=== PATIENT | male | born 1955 | race Caucasian/White ===

== ENCOUNTER 2019-09-17 07:14 | Outpatient (CLI) | payer BC, SELFPAY | END 2019-09-17 07:15 | disposition home or self-care (01) | LOC: ANHCSM 07:15 | PROVIDERS: PCP Family Medicine; Visit Provider Family Medicine | DX: G47.33 Obstructive sleep apnea (adult) (pediatric) (principal) | CPT/HCPCS: 95811 ==

== ENCOUNTER 2019-11-02 09:50 | Outpatient (CLI) | payer BC, SELFPAY ==
--- NOTE | ~2019-11-02 | CT_ITS ---
EXAMINATION: CT soft tissue neck w con DATE: 11/02/2019 10:39 INDICATION: Lymphadenitis. TECHNIQUE: Computed tomography (CT) of the neck was performed with 75 mL Omnipaque-350 intravenous co ntrast. Automated exposure control and iterative reconstruction technique were employed. The dose-phani gth product was 476.60 mGy-cm. COMPARISON: None FINDINGS: There is a 2.0 x 1.3 cm mass in superficial right parotid gland. A skin marker overlies thi s area. There are no pathologically enlarged lymph nodes. The paranasal sinuses are clear. The mastoi d air cells are normal. There is moderate cervical spondylosis. IMPRESSION: 1. 2.0 cm mass in superficial right parotid gland. The differential diagnosis includes benign mixed t umor, Warthin tumor, and less likely primary malignancy or francy metastatic disease. Ultrasound-guide d fine-needle aspiration is recommended. Reviewed, dictated and finalized at location A. PROCESSING SHIFT SUPERVISOR IMPRESSION: 1. 2.0 cm mass in superficial right parotid gland. The differential diagnosis i ncludes benign mixed tumor, Warthin tumor, and less likely primary malignancy o r francy metastatic disease. Ultrasound-guided fine-needle aspiration is recomme nded.
[2019-11-02 10:23] LABS: Blood Urea Nitrogen 18 mg/dL (8-26); Estimated Glomerular Filt Rate 56
== END 2019-11-02 09:51 | disposition home or self-care (01) ==
LOC: ANHIMG 09:57
PROVIDERS: PCP Family Medicine; Visit Provider Otolaryngology
DX: I88.9 Nonspecific lymphadenitis, unspecified (principal)
CPT/HCPCS: 70491; Q9967

== ENCOUNTER 2019-11-15 09:16 | Outpatient (CLI) | payer BC, SELFPAY ==
--- NOTE | ~2019-11-15 | US_ITS ---
EXAMINATION: US soft tissue head and neck DATE: 11/15/2019 10:22 INDICATION: Right parotid gland mass. TECHNIQUE: Multiple grayscale and Doppler ultrasound images of the right parotid gland were obtained. COMPARISON: Neck CT 11/02/2019 FINDINGS: The right parotid gland is normal. No abnormal mass. IMPRESSION: 1. Interval resolution of the right parotid mass. No biopsy was performed. Reviewed, dictated and finalized at location A. NESS INFORMATION CONSULTANT
[2019-11-15 11:34] LABS: Hematocrit 40.3 % (42.0-52.0); Hemoglobin 13.5 g/dL (14.0-18.0); Mean Corpuscular HGB Conc 33.5 g/dl (32-36); Mean Corpuscular Hemoglobin 29.2 pg (26-34); Mean Platelet Volume 11.3 fl (7.4-10.4); Platelet Count Result 207 k/mm3 (150-375); Red Blood Count 4.63 M/mm3 (4.6-6.20); Red Cell Distribution Width 13.2 % (11.5-14.5); White Blood Count 7.4 K/mm3 (4.5-10.0)
[2019-11-15 11:53] LABS: Prothrombin Time 13.3 Seconds (11.1-14.7)
== END 2019-11-15 09:17 | disposition home or self-care (01) ==
PROVIDERS: PCP Family Medicine; Visit Provider Otolaryngology
DX: D37.030 Neoplasm of uncertain behavior of the parotid salivary glands (principal)
CPT/HCPCS: 36415; 76536; 85027; 85610

== ENCOUNTER → 2021-11-25 12:15 | Outpatient (CLI) | payer BC, SELFPAY ==
--- NOTE | ~2021-11-25 | XR_ITS ---
XR hip RT min 2V 11/25/2021 12:35 Indication: Right hip pain Procedure: 2 views right hip Comparison: 01/07/2012 Findings: There is stable mild osteoarthritis of the right hip. No fracture, subluxation or dislocati on is identified. No significant soft tissue abnormality. Impression: 1: Mild osteoarthritis of the right hip. Reviewed, dictated and finalized at location A. SHAPER TOP Impression: 1: Mild osteoarthritis of the right hip.
--- NOTE | ~2021-11-25 | XR_ITS ---
XR lumbar spine 2-3V 11/25/2021 12:35 Indication: Low back pain Procedure: 3 views lumbar spine Comparison: 10/17/2018 Findings: There is mild disc narrowing at L5-S1. There is moderate lower lumbar facet hypertrophy wit h grade 1 spondylolisthesis at L4-5. No fracture, subluxation or dislocation. Mild levocurvature of t he lumbar spine. There are bilateral renal stones. Impression: 1: Mild lumbar spondylosis with levoscoliosis. 2: Bilateral nephrolithiasis. Reviewed, dictated and finalized at location A. ER CONTROL TECHNICIAN Impression: 1: Mild lumbar spondylosis with levoscoliosis. 2: Bilateral nephrolithiasis.
== END ==
PROVIDERS: Visit Provider Physician Assistant
DX: M25.551 Pain in right hip (principal); M47.816 Spondylosis without myelopathy or radiculopathy, lumbar region; M41.86 Other forms of scoliosis, lumbar region; N20.0 Calculus of kidney; M16.11 Unilateral primary osteoarthritis, right hip
CPT/HCPCS: 72100; 73502

== ENCOUNTER → 2021-12-14 10:40 | Outpatient (CLI) | payer BC, SELFPAY ==
--- NOTE | ~2021-12-14 | CT_ITS ---
EXAMINATION: CT abdomen pelvis wo con DATE: 12/14/2021 11:02 INDICATION: Bilateral kidney stones TECHNIQUE: Computed tomography (CT) of the abdomen and pelvis was performed without intravenous contr ast. The dose-length product (DLP) was 1075.33 mGy-cm. Automated exposure control and iterative recon struction technique were employed. COMPARISON: 05/24/2018 FINDINGS: Minimal dependent atelectasis is present in the lung bases. The heart size is normal. The l iver, spleen, pancreas, gallbladder, and adrenal glands are normal. There is an 11 mm hemorrhagic cys t of the left kidney. Simple cysts of the kidneys measure up to 1.5 cm on the left. There are three n onobstructing stones of the right kidney which measure up to 4 mm. There are four nonobstructing ston es of the left kidney which measure up to 6 mm. Stones previously seen in the right kidney lower pole are no longer evident, consistent with interval treatment or passage. No stones are identified in th e ureters or bladder. There is no hydronephrosis or hydroureter. The appendix is normal. There is mil d lumbar spondylosis. IMPRESSION: 1. Nonobstructing bilateral nephrolithiasis. Reviewed, dictated and finalized at location B.
== END ==
PROVIDERS: PCP Family Medicine; Visit Provider Urology
DX: N20.0 Calculus of kidney (principal)
CPT/HCPCS: 74176

== ENCOUNTER → 2022-06-11 15:26 | Outpatient (CLI) | payer BC, SELFPAY ==
--- NOTE | ~2022-06-11 | XR_ITS ---
XR abdomen/kub 1V DATE: 06/11/2022 15:45 INDICATION: Bilateral kidney stones TECHNIQUE: AP projection, 2 views COMPARISON: 12/14/[address] abdomen pelvis 09/05/2018 KUB FINDINGS: Several small renal calcified calculi are noted overlying each kidney. The psoas shadows are intact. No visceromegaly is evident. There is no evidence of bowel obstruction. IMPRESSION: Mild bilateral nephrolithiasis Reviewed, dictated and finalized at Location A. Reviewed, dictated and finalized at location A.
== END ==
PROVIDERS: PCP Family Medicine; Visit Provider Urology
DX: N20.0 Calculus of kidney (principal)
CPT/HCPCS: 74018

== ENCOUNTER 2022-07-26 01:10 | Day surgery (SDC) | payer MEDICARE, SELFPAY ==
[2022-07-14 14:59] VITALS: BMI 33.8
[2022-07-26 08:09] VITALS: BP 129/82; PULSE 69; RESP 18; TEMP 36.2; O2SAT 99; BMI 34.1
[2022-07-26] MEDS: LACTATED RINGERS 1,000 ML 150 ML IV CONT (08:30)
--- NOTE | 2022-07-26 08:32 | P.PNAN_ITS ---
Anes - Initial Pre Proc Eval Procedure: Operation Date: 07/26/22 09:00 Proposed Procedures p Screening Colonoscopy - Torito Reed MD Date/Time: 07/26/22 08:32 Surgeon: Torito Reed MD Pre Op Diagnosis: hx colon polyps Patient Data Age: 67 Gender: M Height: 1.78 m Weight: 108 kg Last Vital Signs Temp 36.2 C L 07/26/22 08:09 Pulse 69 07/26/22 08:09 Resp 18 07/26/22 08:09 BP 129/82 07/26/22 08:09 Pulse Ox 99 07/26/22 08:09 O2 Del Method Room Air 07/26/22 08:09 Allergies Allergy/AdvReac Type Severity Reaction Status Date / Time No Known Allergies Allergy Verified 07/26/22 08:08 Home Medications Medication Instructions Recorded Confirmed Type amlodipine 10 mg tablet 10 mg PO DAILY 07/14/22 07/14/22 History aspirin 81 mg tablet 81 mg PO DAILY 07/14/22 07/14/22 History atenolol 50 mg tablet 50 mg PO DAILY 07/14/22 07/14/22 History atorvastatin 40 mg tablet 40 mg PO DAILY 07/14/22 07/14/22 History fenofibrate nanocrystallized 145 145 mg PO DAILY 07/14/22 07/14/22 History mg tablet losartan 100 mg tablet 100 mg PO DAILY 07/14/22 07/14/22 History multivitamin with minerals-folic 1 tablet PO DAILY 07/14/22 07/14/22 History acid 0.4 mg tablet zolmitriptan 5 mg tablet (Zomig) 5 mg PO ONCE PRN Migraine Headache 07/14/22 07/14/22 History Patient hx anesthesia problems: none Family hx anesthesia problems: none Results Review: All pre-operative results and documents have been reviewed as part of the pre- operative evaluation. [facility] Past Medical History Medical History (Updated 07/26/22 @ 08:35 by Emanuel Del Castillo MD) Obesity MICHAEL (obstructive sleep apnea) Surgical History Surgical History H/O colonoscopy Social History Social History Smoking packs per day: 1 Smoking cigarettes per day: 20.0 Years smoked: 30 Smoking pack-years: 30.00 Smoking status: Former smoker Tobacco type: cigarettes Alcohol intake: current Alcohol use details: occasional Substance use type: does not use Living arrangements: alone Spiritual care concerns: No Anes - Eval Final PreProcedure Day of Procedure 07/26/22 08:32 Patient weight: obese Heart: regular rate and rhythm Lungs: clear to auscultation Airway: Mallampati scale class II Neurological: alert and oriented Last oral intake: >/= 8 hours ASA classification: III Anesthetic plan: proceed Anesthesia type and monitoring: general GIVS and standard monitoring Results Review: All pre-operative results and documents have been reviewed as part of the pre- operative evaluation. Informed Consent: The patient's anesthetic plan and its attendant risks and benefits were discussed with the patient/family/POA. Questions were solicited and answers provided to the satisfaction of the patient/family/POA.
--- NOTE | 2022-07-26 08:45 | PM.HPGS ---
History of Present Illness History of Present Illness Consent: Risks, benefits, and alternatives have been discussed and questions answered. Patient agrees to proceed with procedure. Chief complaint: hx colon polyps Narrative: Benjamín Muniz is a 67 year old male Presents for screening colonoscopy. Patient's current weight appetite and bowel movements are normal. Patient denies abdominal pain. He has had no bleeding. Family history is noncontributory. Previous colonoscopy 2017 revealed adenomatous colon polyp removed from the colon. Patient presents today for surveillance screening colonoscopy. Review of Systems Review of Systems: Review of systems noncontributory. [facility] Past Medical History Medical History (Updated 07/26/22 @ 08:46 by Torito Reed MD) Obesity MICHAEL (obstructive sleep apnea) Surgical History Surgical History H/O colonoscopy Social History Social History Smoking packs per day: 1 Smoking cigarettes per day: 20.0 Years smoked: 30 Smoking pack-years: 30.00 Smoking status: Former smoker Tobacco type: cigarettes Alcohol intake: current Alcohol use details: occasional Substance use type: does not use Living arrangements: alone Spiritual care concerns: No Meds Home Medications and Allergies Home Medications Medication Instructions Recorded Confirmed Type amlodipine 10 mg tablet 10 mg PO DAILY 07/14/22 07/14/22 History aspirin 81 mg tablet 81 mg PO DAILY 07/14/22 07/14/22 History atenolol 50 mg tablet 50 mg PO DAILY 07/14/22 07/14/22 History atorvastatin 40 mg tablet 40 mg PO DAILY 07/14/22 07/14/22 History fenofibrate nanocrystallized 145 145 mg PO DAILY 07/14/22 07/14/22 History mg tablet losartan 100 mg tablet 100 mg PO DAILY 07/14/22 07/14/22 History multivitamin with minerals-folic 1 tablet PO DAILY 07/14/22 07/14/22 History acid 0.4 mg tablet zolmitriptan 5 mg tablet (Zomig) 5 mg PO ONCE PRN Migraine Headache 07/14/22 07/14/22 History Allergies Allergy/AdvReac Type Severity Reaction Status Date / Time No Known Allergies Allergy Verified 07/26/22 08:08 Vital Signs Vital Signs - 24 hr 07/26/22 08:09 Temperature 97.1 F L Pulse Rate 69 Respiratory Rate 18 Blood Pressure 129/82 Pulse Oximetry 99 Oxygen Delivery Room Air Exam Narrative: Physical exam reveals patient to be alert. Vital signs stable. HEENT exam is unremarkable. Patient is anicteric. Lungs are clear to auscultation and percussion. Heart is without murmur or extra sounds. Abdomen bowel sounds present soft nontender with no organomegaly. Digital external rectal exam is normal. Assessment and Plan Assessment and plan (1) History of colon polyps: Code(s): Z86.010 - Personal history of colonic polyps Status: Acute Assessment and Plan: Patient has a history of colon polyp removed from the colon 2016. Plan is for surveillance colonoscopy now after 5 years.
[2022-07-26] MEDS: SIMETHICONE ORAL SUSPENSION 20 MG/0.3 ML 30 ML BOTTLE 0.6 ML IRRIGATION (09:04)
[2022-07-26 09:14] VITALS: BP 129/80; PULSE 90; RESP 22; O2SAT 97
[2022-07-26 09:24] VITALS: BP 118/62; PULSE 88; RESP 23; O2SAT 96
[2022-07-26 09:34] VITALS: BP 113/74; PULSE 77; RESP 19; O2SAT 96
== END 2022-07-26 09:45 | disposition home or self-care (01) ==
PROVIDERS: PCP Family Medicine; Visit Provider Internal Medicine Gastroenterology
PROC: 0DJD8ZZ Inspection of Lower Intestinal Tract, Via Natural or Artificial Opening Endoscopic (ICD-10-PCS; CPT 45378; principal; 2022-07-26 09:00)
DX: Z12.11 Encounter for screening for malignant neoplasm of colon (principal); K64.8 Other hemorrhoids; K57.30 Diverticulosis of large intestine without perforation or abscess without bleeding; D12.2 Benign neoplasm of ascending colon; Z79.82 Long term (current) use of aspirin; G47.33 Obstructive sleep apnea (adult) (pediatric); E66.9 Obesity, unspecified; Z68.34 Body mass index [BMI] 34.0-34.9, adult
CPT/HCPCS: 45385; 88305; J2704; J7120

== ENCOUNTER → 2022-08-25 07:27 | Outpatient (CLI) | payer MEDICARE, SELFPAY ==
--- NOTE | ~2022-08-25 | MR_ITS ---
EXAMINATION: MR lumbar spine wo con DATE: 08/25/2022 08:09 INDICATION: Lumbar radiculopathy. TECHNIQUE: Magnetic resonance imaging (MRI) of the lumbar spine was performed without intravenous con trast. Sequences included sagittal T2-weighted FSE, sagittal T2-weighted FS FSE, sagittal T1-weighted FSE, and axial T2-weighted FSE. COMPARISON: Lumbar spine MRI 11/20/2018 FINDINGS: Bone alignment is normal. Vertebral body heights are normal. There is mildly decreased disc height at L4-L5 and L5-S1. Epidural lipomatosis is noted. The distal spinal cord signal intensity is normal. The conus medullaris is at L1. The following disc levels are specifically discussed: L1-L2: The disc does not extend beyond the endplate margin. There is mild bilateral facet joint osteo arthritis. There is no neural foraminal stenosis. There is no central canal stenosis. L2-L3: The disc is mildly bulging. There is mild bilateral facet joint osteoarthritis. There is mild bilateral neural foraminal stenosis. There is no central canal stenosis. L3-L4: The disc is bulging and has an annular fissure. There is severe bilateral facet joint osteoart hritis. There is mild bilateral neural foraminal stenosis. There is no central canal stenosis. L4-L5: The disc is bulging and has an annular fissure. There is severe bilateral facet joint osteoart hritis. There is mild bilateral neural foraminal stenosis. There is mild central canal stenosis. L5-S1: The disc is bulging and has an annular fissure. There is moderate bilateral facet joint osteoa rthritis. There is mild left neural foraminal stenosis. There is mild central canal stenosis. IMPRESSION: 1. Mild lumbar spondylosis, stable from 11/20/2018. Reviewed, dictated and finalized at location A. DATA LEAD
== END ==
PROVIDERS: PCP Family Medicine
DX: M47.26 Other spondylosis with radiculopathy, lumbar region (principal)
CPT/HCPCS: 72148

== ENCOUNTER 2023-04-18 17:19 | Outpatient (CLI) | payer MEDICARE, SELFPAY ==
--- NOTE | ~2023-04-18 | XR_ITS ---
Supine and upright views of the abdomen Clinical history: Renal stone COMPARISON: 06/11/2022 Findings: Bowel gas pattern is nonspecific. No evidence for obstruction or free air. There are small bilateral renal stones, similar to prior exam. Osseous structures are intact. Impression: Small bilateral renal stones, similar to prior exam. Reviewed, dictated and finalized at [facility]. Impression: Small bilateral renal stones, similar to prior exam.
== END 2023-04-18 17:20 | disposition home or self-care (01) ==
PROVIDERS: PCP Family Medicine; Visit Provider Urology
DX: N20.0 Calculus of kidney (principal)
CPT/HCPCS: 74018

== ENCOUNTER 2023-12-12 11:40 | Outpatient (CLI) | payer OTHER, SELFPAY ==
--- NOTE | ~2023-12-12 | XR_ITS ---
Right Shoulder Technique: AP and axillary views were obtained. Clinical History: Pain Findings: No fracture or dislocation is seen. Osseous alignment is anatomic. The glenohumeral and acr omioclavicular joint spaces are preserved. Soft tissues are unremarkable. Impression: Unremarkable right shoulder radiographs. Reviewed, dictated and finalized at [facility]. Impression: Unremarkable right shoulder radiographs.
== END 2023-12-12 11:41 ==
PROVIDERS: Visit Provider Physician Assistant
DX: M25.511 Pain in right shoulder (principal)
CPT/HCPCS: 73030

== ENCOUNTER 2025-04-25 07:49 | Outpatient (CLI) | payer MEDICARE, SELFPAY ==
--- NOTE | ~2025-04-25 | US_ITS ---
EXAM: Focused ultrasound examination of the soft tissues of the bilateral axilla HISTORY: M79.89 - Other specified soft tissue disorders . Palpable abnormality TECHNIQUE: Sonographic evaluation of the soft tissues of the left axilla were performed assessing gra yscale appearance and color Doppler flow. COMPARISON: Reference is made to a CT examination of the head and neck dated 11/02/2019. FINDINGS: Within the right axilla is a reniform shaped soft tissue focus consistent with an axillary lymph node . This focus measures 16 mm in short axis dimension and contains a morphologically unremarkable fatty hilum. Within the left axilla is an additional reniform shaped focus of soft tissue morphologically represen ting a lymph node. This focus measures 24 mm in short axis dimension, without morphologic abnormality . Sonographic evaluation of the remainder of soft tissues of the bilateral axilla demonstrate benign fi brofatty and fibromuscular elements without a cystic or solid lesion of concern. IMPRESSION: Morphologically indeterminate lymph nodes within the bilateral axilla corresponding to the areas of p alpable concern, for which short-term follow-up is suggested. Reviewed, dictated and finalized at location A. IMPRESSION: Morphologically indeterminate lymph nodes within the bilateral axilla correspon ding to the areas of palpable concern, for which short-term follow-up is sugges lorri.
--- NOTE | ~2025-04-25 | US_ITS ---
Ultrasound of the Abdominal Aorta INDICATION: Tobacco use TECHNIQUE: Grayscale, color Doppler, and pulsed Doppler images of the aorta and common iliac arteries were obtained. COMPARISON: None. FINDINGS: Maximum vascular dimensions are as follows: Proximal aorta: Obscured Mid aorta: 2.9 cm Distal aorta: 2.0 cm Right common iliac artery: obscured Left common iliac artery: Obscured There is no evidence of abdominal aortic aneurysm. IMPRESSION: No abdominal aortic aneurysm seen, but the proximal abdominal aorta and the bilateral common iliac ar teries are obscured by bowel gas shadowing/body habitus. Reviewed, dictated and finalized at [facility]. IMPRESSION: No abdominal aortic aneurysm seen, but the proximal abdominal aorta and the tiffani ateral common iliac arteries are obscured by bowel gas shadowing/body habitus.
== END 2025-04-25 07:50 | disposition home or self-care (01) ==
LOC: MICIMG 07:49
PROVIDERS: PCP Family Medicine
DX: R59.9 Enlarged lymph nodes, unspecified (principal); M79.89 Other specified soft tissue disorders; Z72.0 Tobacco use
CPT/HCPCS: 76706; 76882

== ENCOUNTER 2025-07-31 11:23 | Outpatient (CLI) | payer MEDICARE, SELFPAY ==
--- NOTE | ~2025-07-31 | US_ITS ---
EXAMINATION: US axilla BI HISTORY:70-year old Male; presents for evaluation of palpable lumps in both axilla ongoing for over 5 years. COMPARISON: 04/25/2025 FINDINGS: Targeted ultrasound at the area of the patient's palpable lump in both axilla was completed. In the left axilla corresponding to the palpable lump, there is a 5.2 x 1.8 x 5.2 cm isoechoic mass with circumscribed margins located within the subcutaneous fat.. No internal vascularity demonstrated. The previously reported prominent lymph node which as predominantly fatty hilum with thin cortex is located medial to the palpable mass and has not changed in the interval. In the right axilla corresponding to the palpable lump, there is a 6.4 x 2.1 x 5.8 cm isoechoic mass within the subcutaneous tissue. It demonstrate no internal vascularity. IMPRESSION: Bilateral axillary superficial masses isoechoic similar to the subcutaneous fat. 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 However a malignant variety such as liposarcoma cannot be totally excluded without pathologic diagnosis. RECOMMENDATION: Clinical evaluation of patient's palpable lump and referral to breast surgeon for additional recommendations. Reviewed, dictated and finalized at location B. RINE OPERATOR IMPRESSION: Bilateral axillary superficial masses isoechoic similar to the subcutaneous fat . 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 However a malignant variety such as liposarcoma cannot be totally excluded without pathologic diagnosis. RECOMMENDATION: Clinical evaluation of patient's palpable lump and referral to breast surgeon f or additional recommendations.
== END 2025-07-31 11:24 | disposition home or self-care (01) ==
LOC: MICIMG 11:24
PROVIDERS: PCP Family Medicine
DX: M79.89 Other specified soft tissue disorders (principal)
CPT/HCPCS: 76882

== ENCOUNTER 2025-08-29 12:15 | Outpatient (CLI) | payer MEDICARE, SELFPAY ==
--- NOTE | 2025-08-29 12:24 | ECG_ITS ---
Test Date: 2025-08-29 12:40:22 Measurements Intervals [place] Rate: 62 P: 14 OK: 194 QRS: -27 QRSD: 98 T: -1 QT: 393 QTc: 401 Interpretive Statements SINUS RHYTHM LOW QRS VOLTAGE IN PRECORDIAL LEADS LEFT VENTRICULAR HYPERTROPHY PATTERN CONSISTENT WITH PULMONARY DISEASE BASELINE ARTIFACT- I, II, III, AVR, AVL, AVF BORDERLINE ECG No previous ECG available for comparison Electronically Signed On 08-29-2025 13:04:19 NYLON MACHINE OPERATOR by Lance James D.O.
[2025-08-29 13:00] LABS: Anion Gap 5 mmol/L (4-12); Blood Urea Nitrogen 28 mg/dL (9-20); Calcium 9.9 mg/dL (8.4-10.2); Carbon Dioxide 25 mmol/L (22-30); Chloride 110 mmol/L (98-107); Estimated Glomerular Filt Rate 55; Glucose 128 mg/dL (65-110); Potassium 4.1 mmol/L (3.4-5.0); Sodium 140 mmol/L (137-145)
[2025-08-29 13:02] LABS: INR 1.1; Prothrombin Time 14.0 Seconds (11.1-14.7)
[2025-08-29 13:03] LABS: Partial Thromboplastin Time 31.7 Seconds (22.3-36.8)
== END 2025-08-29 12:16 | disposition home or self-care (01) ==
PROVIDERS: Anesthesiology; PCP Family Medicine; Visit Provider Surgery
DX: Z01.818 Encounter for other preprocedural examination (principal); I12.9 Hypertensive chronic kidney disease with stage 1 through stage 4 chronic kidney disease, or unspecified chronic kidney disease; N18.2 Chronic kidney disease, stage 2 (mild); R94.31 Abnormal electrocardiogram [ECG] [EKG]
CPT/HCPCS: 36415; 80048; 85610; 85730; 93005

== ENCOUNTER 2025-08-30 02:22 | Day surgery (SDC) | payer MEDICARE, SELFPAY ==
--- OUTSIDE RECORDS SUMMARY | 2024-07-17 04:00 | XMS_ITS ---
Author Organization [facility] Address [address] [address] Care Team Providers Care Echo Vascular Technologist Name Role Phone Suleiman Bernard Primary Care Provider ANJALI Holland Unavailable [phone] LYRIC NIELSEN Unavailable [phone] REASON FOR VISIT PAIN IN RIGHT ARM Encounters Encounter Location Date Provider Diagnosis [facility] [address] [place] [address] [place] [address] 07/17/2024 LYRIC NIELSEN Plan Of Treatment No Information Progress Notes * LINDA NUNEZ DDOB:1955 (70 yo M)Acc No.[id number]:07/17/2024 Patient: Renée HORTALINDA Provider: Jessica Nielsen DNP :1955 A ge:68 Y S ex:Male Date:07/17/2024 Address:[address] [facility] Pcp:Suleiman Bernard Subjective: * Chief Complaints: * P AIN IN RIGHT ARM * Electronic signature of JUWAN NIELSEN on 08/30/2025 at 02:26 AM DIETITIAN RESEARCH Sign off status: Pending * Provider: Jessica Nielsen DNP Date: Generated for Nathalie quintana/Gallo/eTransmitting on: 10/31/2024 02:26 AM DIETITIAN RESEARCH
--- NOTE | 2025-08-19 15:01 | PC.NURSE ---
[facility] has started construction of its new state of the art ER which will open Spring 2026. With this, we anticipate parking may be a challenge for some our surgical patients and families. Parking spaces are limited but are available for all Surgical, obstetrics, and ER patients sharing this lot. If you arrive and find you are having a hard time finding a parking space, please note that we understand the challenges, please drive around the hospital and park near Hospital Entrance 1. When you enter this entrance, you can ask a volunteer to direct or take you back to the surgical waiting area to check in. We appreciate everyone?s understanding of these expected challenges while we build for your future. Report to the Outpatient Waiting Room, entrance under the green pavilion located off [address], at time _7 AM on date 08/30/25 . Planned Procedure Time: __9 AM .? Time changes happen often and if your time is changed the preop area will call you the afternoon before. - You and your visitor will be asked to self-screen and do not enter if you have any COVID symptoms. Please call surgeon if you need to reschedule. - A mask is optional within the hospital at this time. Patients may have clear liquids (water, carbonated beverages, clear teas, apple juice) until 3 hours prior to surgery( 6AM) with a maximum of 20 ounces. - No food from midnight until time of surgery and no smoking, or chewing tobacco (or any form of nicotine). No chewing gum, candy or mints. Take only the following medications with a SIP of water on the morning of surgery: NONE DO NOT STOP ANY OF YOUR OTHER PRESCRIPTION MEDICATIONS PRIOR TO SURGERY EXCEPT THE FOLLOWING Hold all vitamins and supplements for 3 days per anesthesiologist.LAST DOSE08/26/25 Medications to discontinue per physician ____HOLD ZEPBOUND 10 DAYS PRE OP PER ANESTHESIA Date to take last dose__08/19/[address] ASPIRIN PER DR FRAGA BUT DO NOT TAKE MORNING OF SURGERY Please no make-up, nail telugu, hairspray, perfume, deodorant, or body powder the day of surgery.? No jewelry (including any body piercings) or valuables the day of surgery, leave them at home.? Please take a shower or bath the night before, or the morning of, surgery with an antibacterial soap.? Wear comfortable, loose fitting clothing.? Children are encouraged to wear pajamas. - Jewelry must be removed prior to entering the operating room.? Rings and piercings that are not removed may be cut off. - The hospital will not accept responsibility for valuables.? - Please leave all valuables, including medications, at home the day of surgery. If you are going home after surgery, a licensed laborer driver must drive you home.? - NO public transportation without another adult if you receive anesthesia. - We recommend that an adult stay with you for 24 hours following discharge. - We also recommend that you do not drive, make important decision, drink alcoholic beverages, or take any drugs that were not prescribed by your health care provider for at least 24 hours after your discharge time. For Pediatric surgeries, we recommend two adults accompany the child home. Follow any additional instructions given to you from your surgeon. Telephone instructions given to __PATIENT and asked if any additional questions and then verbalized understanding. Patient advised to call surgeon office or pre surgery nurse liaison [phone] if any additional questions.
[2025-08-19 15:29] VITALS: BMI 31.2
[2025-08-30] VITALS (8 sets, daily range): BP systolic 99–149; BP diastolic 56–82; PULSE 65–72; RESP 12–20; TEMP 36.4–36.8; O2SAT 94–100
--- OUTSIDE RECORDS SUMMARY | 2025-08-30 02:26 | XMS_ITS | Encounter Summary ---
Author Organization [facility] Address [facility] [place] [address] Care Team Providers Care Millinery Copyist Name Role Phone Suleiman Bernard MD Primary Care Provider [phone] Reason for Referral * Surgical (Routine) - Closed Specialty Diagnoses / Procedures Referred By Shonda howell Referred To Contact Procedures Case request operating room: INJECTION EPIDURAL TRANSFORAMINAL L4-5 Kaitlyn Saucedo NP 3 [facility] [address] [place] [address] Phone: tel: [phone] fax: Referral ID Status Reason Start Date Expiration Date Visits Re quested Visits Authorized [id number] Closed 06/21/2022 06/21/2023 1 1 Encounter Details Date Type Department Care Team (Late st Contact Info) Description 06/21/2022 Prep for Procedure [facility] [place] [address] [id number] Kaitlyn Saucedo NP 3 [facility] [address] [place] [address] [phone] (Work) Social History Tobacco Use Types Packs/Day Years Used Date Smoking Tobacco: Former Cigarettes Q uit: 2000 Smokeless Tobacco: Former Alcohol Use Standard Drinks/Week Comments Yes 0 (1 standard drink = 0.6 oz pur e alcohol) socially Sex and Gender Information Value Date Recorded Sex Assigned at Male 04/25/2025 8:51 AM CDT Legal Sex Male 3:27 PM CDT Gender Identity Not on file Sexual Orientation Not on file COVID-19 Exposure Response Date Recorded In the last 10 days, have yo u been in contact with someone who was confirmed or suspected to have Coronavirus/COVID-19? No / Unsure 06/21/2022 12:48 PM CDT documented as of this encounter Functional Status * Calculated C-SSRS Risk Score (Lifetime/Recent) Answer Date of Assessment Author Status No Risk Indicated 06/21/2022 1:25 PM CDT Melida Hernandez RN Active * [place] Suicide Severity Rating Scale (Screener/Recent Self-Report) Question Answer Date of Assessment Author Status 1. Wish to be (Past 1 Month) No 06/21/2022 1:25 PM CDT Melida Hernandez RN Activ e 2. Non-Specific Active Suicidal Thoughts (Past 1 Month) No 06/21/2022 1:25 PM CDT Melida Hernandez RN Activ e 6. Suicidal Behavior (Lifetime) No 06/21/2022 1:25 PM CDT Melida Hernandez RN Activ e documented as of this encounter Plan of Treatment Scheduled Orders Name Type Priority Associated Diagnoses Order Schedule Case request operating room: INJECTION EPIDURAL TRANSFORAMINAL L4-5 Case Request Routine Once for 1 Occurrences starting 06/21/2022 until 06/21/2022 documented as of this encounter Visit Diagnoses Not on filedocumented in this encounter Care Teams Millinery Copyist Relationship Specialty Start Date End Date Suleiman Bernard MD [address] [place] [phone] PCP - General FAMILY PRACTICE 06/21/22 documented as of this encounter
--- OUTSIDE RECORDS SUMMARY | 2025-08-30 02:26 | XMS_ITS | Encounter Summary ---
Author Organization [facility] Address [facility] [place] [address] Care Team Providers Care Surgery Specialist Name Role Phone Suleiman Bernard MD Primary Care Provider [phone] Reason for Referral * Surgical (Routine) - Closed Specialty Diagnoses / Procedures Referred By Shonda t Referred To Contact Diagnoses Lumbar radiculopathy Procedures Case request operating room: INJECTION EPIDURAL TRANSFORAMINAL L5-S1 Kaitlyn Saucedo NP 3 [facility] [address] [place] [address] Phone: tel: [phone] fax: Referral ID Status Reason Start Date Expiration Date Visits Re quested Visits Authorized [id number] Closed 09/15/2022 09/15/2023 1 1 WORK WRAPPER EXAMINER Encounter Details Date Type Department Care Team (Late st Contact Info) Description 09/15/2022 Prep for Procedure [facility] Interventional [place] [address] [id number] Kaitlyn Saucedo NP 3 [facility] [address] [place] [phone] (Work) Social History Tobacco Use Types Packs/Day [...] on file Sexual Orientation Not on file documented as of this encounter Plan of Treatment Scheduled Orders Name Type Priority Associated Diagnoses Orde r Schedule Case request operating room: INJECTION EPIDURAL TRANSFORAMINAL L5-S1 Case Request Routine Lumbar radiculopathy Once for 1 Occurrences starting 09/15/2022 until 09/15/2022 documented as of this encounter Visit Diagnoses Diagnosis Lumbar radiculopathy- Primary Thoracic or lumbosacral neuritis or radiculitis, unspecified SI joint arthritis Sacroiliitis, not elsewhere classified documented in this encounter Care Teams Surgery Specialist Relationship Specialty Start Date End Date Suleiman Bernard MD [address] [place] [address] PCP - General FAMILY PRACTICE 06/21/22 documented as of this encounter
--- OUTSIDE RECORDS SUMMARY | 2025-08-30 02:26 | XMS_ITS ---
Author Organization Unknown Address [address] [place], [place] [id number] Phone Care Team Providers Care Gristmiller Name Role Phone GIA ALBA APRN Attending Unavailable NO OR UNK FAMILY PHYSICIAN Primary Unava ilable Social History Type Status Start Date End Date Code Code Syst em Sex Male Hospital Discharge Instructions Should you have any questions prior to discharge, please contact a member of your healthcare team. If you have left the hospital and have any questions, please contact your primary care physician. Reason For Referral No Data Found Plan of Treatment No Data Found Encounters Encounter Diagnosis Start Date Code Code Sys tem Biceps tendinitis 07/17/2024556481040 SNOMED-CT Personal Care Team Section
--- OUTSIDE RECORDS SUMMARY | 2025-08-30 02:27 | XMS_ITS | Clinical Summary ---
Author Organization [facility] Address [facility] [place] [place] [address] Care Team Providers Care Black Oxide Operator Name Role Phone Suleiman Bernard MD Primary Care Provider [phone] Allergies No known active allergies Medications aspirin 81 MG chewable tablet Chew 1 tablet (81 mg total) by mouth daily. Active amLODIPine (NORVASC) 10 MG tablet Take 0.5 tablets (5 mg total) by mouth daily. 06/02/2022 Active atenolol (TENORMIN) 50 MG tablet Take 1 tablet (50 mg total) by mouth daily. 06/02/2022 Active atorvastatin (LIPITOR) 40 MG tablet Take 1 tablet (40 mg total) by mouth daily. 06/02/2022 Active fenofibrate (TRICOR) 145 MG tablet Take 1 tablet (145 mg total) by mouth daily. 05/05/2022 Active losartan (COZAAR) 100 MG tablet Take 1 tablet (100 mg total) by mouth daily. 06/02/2022 Active multi vitamin/mineral s (THERA-M ENHANCED) tablet Take 1 tablet by mouth daily. Active albuterol sulfate HFA 108 (90 Base) MCG/ACT inhaler 12/25/2024 Act jamila losartan-hydroC HLOROthiazide (HYZAAR) 100-12.5 MG tablet 03/18/2025 Active ZEPBOUND 2.5 MG/0.5ML injection 04/02/2025 Active HYDROcodone-wendy taminophen (NORCO) 5-325 MG tabletIndicatio ns:Acute Pain < 7 Day Supply Take 1 tablet by mouth every 6 (six) hours as needed. Indications: Acute Pain < 7 Day Supply 20 tablet 05/09/2025 Active Active Problems Problem Noted Date Diagnosed Date Lumbar spondylosis 02/28/2025 Lumbar facet arthropathy 11/03/2022 Overview (11/03/2022): Added automatically from request for surgery [id number] Lumbar radiculopathy 09/15/2022 Overview (09/15/2022): Added automatically from request for surgery [id number] Sacroiliitis 07/21/2022 Overview (07/21/2022): Added automatically from request for surgery [id number] Encounters Date Type Department Care Team Description 06/26/2025 12:40 PM CDT - 06/26/2025 1:00 PM CDT Surgery [facility] Inter[facility] [place] [address] [id number] Jie Manuel MD INJECTION EPIDURAL LUMBAR INTERLAMINAR l45 06/26/2025 11:54 AM CDT - 06/26/2025 1:05 PM CDT Hospital Encounter [facility] [place] [address] [id number] Jie Manuel MD Discharge Disposition: Home or Self Care (Routine Discharge) 06/26/2025 Travel from Last 3 Months Family History Medical History Relation Comments Heart Disease Father Relation Status Comments Father Mother Sister Alive Social History Tobacco Use Types Packs/Day Years Used Date Smoking Tobacco: Former Cigarettes Q uit: 2000 Smokeless Tobacco: Former Tobacco Cessation:Counseling Given: No Alcohol Use Standard Drinks/Week Comments Yes 0 (1 standard drink = 0.6 oz pur e alcohol) socially PHQ-2 Answer Date Recorded Patient Health Questionnaire-2 Score 0 04/25/2025 Sex and Gender Information Value Date Recorded Sex Assigned at Male 04/25/2025 8:51 AM CDT Legal Sex Male 3:27 PM CDT Gender Identity Not on file Sexual Orientation Not on file Last Filed Vital Signs Vital Sign Reading Time Taken Comments Blood Pressure 131/85 06/26/2025 1:01 PM CDT Pulse 65 06/26/2025 1:01 PM CDT Temperature 36.6 C (97.8 F) 06/26/2025 12:10 PM CDT Respiratory Rate 16 06/26/2025 1:01 PM CDT Oxygen Saturation 99% 06/26/2025 1:01 PM CDT Inhaled Oxygen Concentration - - Weight 102.7 kg (226 lb 6.4 oz) 025 12:10 PM CDT Height 177.8 cm (5' 10) 05/09/2025 8:35 AM CDT Body Mass Index 32.49 05/09/2025 8:35 AM CDT Plan of Treatment Health Maintenance Due Date Last Done Comments Colorectal Cancer Screening Colonoscopy (10 Years) 1957 Hepatitis C 1975 DTaP, Tdap and Td Vaccines ( 1 - Tdap) 1976 Pneumococcal Vaccine: 50+ Years (1 of 1 - PCV) 2007 Zoster Vaccines (1 of 2) 2007 AAA SCREENING 2022 Annual Medicare Wellness Visit 2022 COVID-19 Vaccine (4 - 2024-2 6 season) 2025 05/07/2022, 08/19/2021, 12/04/2020 Influenza Adult (#1) 2025 06/22/2021, 07/01/2020, 09/10/2014 RSV Immunization or 60+ Years (1 - 1-dose 75+ series) 2032 PHQ-2 (Physician [place]) Completed 04/25/2025 Hepatitis A Vaccines Aged Out No long er eligible based on patient's age to complete this topic Meningococcal B Vaccine Aged Out No l onger eligible based on patient's age to complete this topic Meningococcal Vaccine Aged Out No liam herbert eligible based on patient's age to complete this topic RSV Immunizations Under 20 Months Aged Out No longer eligible b ased on patient's age to complete this topic Procedures Procedure Name Priority Date/Time Associated Diagnosis Comments NJX INTERLAMINAR LMBR/SAC 06/26/2025 12:52 PM CDT Lumbar radiculopathy XR PAIN CLINIC C-ARM Today 06/26/2025 12:03 PM CDT from Last 3 Months Results * XR PAIN CLINIC C-ARM (06/26/2025 12:03 PM CDT) Narrative Radiology, Technologist - 06/26/2025 12:03 PM CDT This report does not contain a radiologist's interpretation. Please review associated procedure and/or operative report. Jie Manuel MD GENERAL IMAGING Final Result from Last 3 Months Insurance MED REPLACE [facility] [place] [address] Care Teams Black Oxide Operator Relationship Specialty Start Date End Date Suleiman Bernard MD [address] [place] [id number] PCP - General FAMILY PRACTICE 06/21/22
--- OUTSIDE RECORDS SUMMARY | 2025-08-30 02:27 | XMS_ITS | Encounter Summary ---
Author Organization [facility] Address [facility] [place] [address] Care Team Providers Care Charter Bus Driver Name Role Phone Suleiman Bernard MD Primary Care Provider [phone] Reason for Referral * Surgical (Routine) - Closed Specialty Diagnoses / Procedures Referred By Contabel t Referred To Contact Diagnoses Lumbar facet arthropathy Procedures Case request operating room: [facility] MEDIAL BRANCH LUMBAR L4-5, L5-S1 Kaitlyn Saucedo NP 3 [facility] [address] [place] [address] Phone: tel: [phone] fax: Referral ID Status Reason Start Date Expiration Date Visits Re quested Visits Authorized [id number] Closed 11/03/2022 11/03/2023 1 1 STAFFING Encounter Details Date Type Department Care Team (Late st Contact Info) Description 11/03/2022 Prep for Procedure [facility] Interventional [place] [address] [id number] Kaitlyn Saucedo NP 3 [facility] [address] [place] [phone] (Work) Social History Tobacco Use Types Packs/Day [...] suspected to have Coronavirus/COVID-19? No / Unsure 11/03/2022 11:40 AM RN STAFFING documented as of this encounter Functional Status * Calculated C-SSRS Risk Score (Lifetime/Recent) Answer Date of Assessment Author Status No Risk Indicated 11/03/2022 12:01 PM RN STAFFING Leighton Matthews RN Active * [place] Suicide Severity Rating Scale (Screener/Recent Self-Report) Question Answer Date of Assessment Author Status 1. Wish to be (Past 1 Month) No 11/03/2022 12:01 PM Emily Kunz RN Act jamila 2. Non-Specific Active Suicidal Thoughts (Past 1 Month) No 11/03/2022 12:01 PM Emily Kunz RN Act jamila 6. Suicidal Behavior (Lifetime) No 11/03/2022 12:01 PM Emily Kunz RN Act jamila documented as of this encounter Plan of Treatment Scheduled Orders Name Type Priority Associated Diagnoses Orde r Schedule Case request operating room: BLOCK MEDIAL BRANCH LUMBAR L4-5, L5-S1 Case Request Routine Lumbar facet arthropathy Once for 1 Occurrences starting 11/03/2022 until 11/03/2022 documented as of this encounter Visit Diagnoses Diagnosis Lumbar facet arthropathy- Primary Lumbosacral spondylosis without myelopathy documented in this encounter Care Teams Charter Bus Driver Relationship Specialty Start Date End Date Suleiman Bernard MD [address] [place] [phone] PCP - General FAMILY PRACTICE 06/21/22 documented as of this encounter
--- OUTSIDE RECORDS SUMMARY | 2025-08-30 02:27 | XMS_ITS | Patient Health Record ---
Author Organization [facility] Address [address] [place] [address] Care Team Providers Care Observation Assistant Name Role Phone Suleiman Bernard Primary Care Provider ANJALI Holland Unavailable [phone] Reason For Referral No Information Plan Of Treatment No Information Insurance Providers Payer Name Payer Address Payer Phone Subscriber Number Group Number Insured Name Patient Relationship to Insured Coverage Start Date Coverage End Date [employer] MEDICARE [address] [address] [place] [address] [id number] LINDA NUNEZ Self - patient is the insured [place] [address] [place] [address] [id number] LINDA NUNEZ Self - patient is the insured
--- OUTSIDE RECORDS SUMMARY | 2025-08-30 02:27 | XMS_ITS | Encounter Summary ---
Author Organization [facility] Address [address] [place] [address] Care Team Providers Care Grounds Foreman Name Role Phone Suleiman Bernard MD Primary Care Provider [phone] Encounter Details Date Type Department Care Team (Late st Contact Info) Description 11/02/2022 Pre-Procedure Call [facility] Interventional Pain [place] [address] [id number] Kaitlyn Saucedo NP 3 [facility] [address] [place] [address] [phone] (Work) Social History Tobacco Use Types Packs/Day Years Used Date Smoking Tobacco: Former Cigarettes Q uit: 2001 Smokeless Tobacco: Former Alcohol Use Standard Drinks/Week [...] Coronavirus/COVID-19? No / Unsure 11/03/2022 11:40 AM DISPLAYER MERCHANDISE documented as of this encounter Functional Status * Calculated C-SSRS Risk Score (Lifetime/Recent) Answer Date of Assessment Author Status No Risk Indicated 11/03/2022 12:01 PM DISPLAYER MERCHANDISE Leighton Matthews RN Active * [place] Suicide Severity Rating Scale (Screener/Recent Self-Report) Question [...] as of this encounter Plan of Treatment Not on file documented as of this encounter Visit Diagnoses Not on filedocumented in this encounter Care Teams Grounds Foreman Relationship Specialty Start Date End Date Suleiman Bernard MD [address] [place] [phone] PCP - General FAMILY PRACTICE 06/21/22 documented as of this encounter
--- OUTSIDE RECORDS SUMMARY | 2025-08-30 02:27 | XMS_ITS | Clinical Summary ---
Author Organization [employer] [email or web address] Address [address] [place] [address] Care Team Providers Care Journeyman Powerhouse Operator Name Role Phone Suleiman Bernard MD Primary Care Provider [phone] Source Comments [email or web address],non-owned Affiliates and Associated Physician Practices is amultiple site organization consisting of ambulatory clinics and hospital sitesin [place], [place], [place] and [place]. This disclosure is being madepursuant to the Care Everywhere program and may not contain all information available regarding this patient. Last updated 18.Jiglu Allergies No known active allergies Medications * Be aware that medications may not be up to date on this document. Alwaysverify current medications with the patient. losartan (COZAAR) 100 MG tablet 02/01/2019 Active atenolol (TENORMIN) 50 MG tablet 02/01/2019 Active amLODIPine (NORVASC) 5 MG tablet 02/01/2019 Active fenofibrate (TRICOR) 145 MG tablet 03/01/2019 Active HYDROcodone-acet aminophen (NORCO) 5-325 MG tablet 02/23/2019 Active meloxicam (MOBIC) 15 MG tablet 02/27/2019 Active ZOLMitriptan (ZOMIG) 5 MG tablet 12/04/2018 Active predniSONE (DELTASONE) 10 MG tablet 03/01/2019 Active atorvastatin (LIPITOR) 40 MG tablet 02/01/2019 Active ciprofloxacin (CIPRO) 500 MG tablet Take 500 mg by mouth 2 times daily Active aspirin (ASPIRIN) 81 MG tablet Take 81 mg by mouth once daily Active multivitamin daily tablet Take 1 tablet by mouth daily with food Active Active Problems No known active problems Family History Medical History Relation Name Comments CAD (Coronary Artery Disease) Father Migraine Father Other Father Tension Headach e Arthritis - Osteo Mother Arthritis - Rheumatoid Mother Relation Name Status Comments Father Alive Mother Alive Sister Alive Social History Tobacco Use Types Packs/Day Years Used Date Smoking Tobacco: Former Smokeless Tobacco: Current Chew Alcohol Use Standard Drinks/Week Comments Yes 3 (1 standard drink = 0.6 oz pur e alcohol) Sex and Gender Information Value Date Recorded Sex Assigned at Not on file Legal Sex Male 6:38 PM TRANSPLANT RN Gender Identity Not on file Sexual Orientation Not on file Last Filed Vital Signs Vital Sign Reading Time Taken Comments Blood Pressure - - Pulse - - Temperature - - Respiratory Rate - - Oxygen Saturation - - Inhaled Oxygen Concentration - - Weight 104.3 kg (230 lb) 03/05/2019 10:22 AM CDT Height 177.8 cm (5' 10) 03/05/2019 10:22 AM CDT Body Mass Index 33 03/05/2019 10:22 AM CDT Plan of Treatment Health Maintenance Due Date Last Done Comments COLOGUARD (AGES 45-75) - COL ON CA SCREENING 1957 COLON MONITORING 1957 COLONOSCOPY - COLON CA SCREENING 1957 CT COLONOGRAPHY - COLON CA SCREENING 1957 Colorectal Cancer Screening 1957 FIT - COLON CA SCREENING 1957 FLEX SIG - COLON CA SCREENING 1957 HEPATITIS C SCREENING 07/15/1975 DTAP/TDAP/TD VACCINES (1 - Tdap) 1976 PNEUMOCOCCAL VACCINE 50+ (1 of 1 - PCV) 2007 ZOSTER VACCINE (1 of 2) 2007 SCREENING FOR DIABETES 03/05/2019 AAA SCREENING 2022 DEPRESSION SCREENING 09/26/2024 COVID-19 VACCINE (1 - 2024-2 6 season) 2025 INFLUENZA VACCINE (#1) 2025 Respiratory Syncytial Virus (RSV) Vaccine Pt: or over 60 yrs (1 - 1-dose 75+ series) 2032 HEPATITIS B VACCINE Aged Out No longe r eligible based on patient's age to complete this topic HIB VACCINE Aged Out No longer eligi ble based on patient's age to complete this topic HPV VACCINE Aged Out No longer eligi ble based on patient's age to complete this topic MENINGOCOCCAL (Group B) VACC INE SHARED DECISION-MAKING Aged Out No longer eligibl e based on patient's age to complete this topic MENINGOCOCCAL GROUPS A/C/Y/W VACCINE Aged Out No longer eligible b ased on patient's age to complete this topic Insurance [facility] Address: [address] [address] Care Teams Journeyman Powerhouse Operator Relationship Specialty Start Date End Date Suleiman Bernard MD PCP - General 09/03/09
[2025-08-30] MEDS: LACTATED RINGERS 1,000 ML 30 ML IV CONT (07:30)
--- NOTE | 2025-08-30 08:07 | WPDANESEPPF ---
Anes - Initial Pre Proc Eval Procedure: Operation Date: 08/30/25 09:00 Proposed Procedures p Excision Bilateral Axillary Subcutaneous Masses - Zeb Sigala MD Date/Time: 08/30/25 08:07 Surgeon: Zeb Sigala MD Pre Op Diagnosis: Mert Axillar subq masses 6 by 7 cm Patient Data Age: 70 Gender: M Height: 1.78 m Weight: 99.7 kg Last Vital Signs Temp 36.4 C L 08/30/25 07:47 Pulse 69 08/30/25 07:47 Resp 16 08/30/25 07:47 BP 111/78 08/30/25 07:47 Pulse Ox 100 08/30/25 07:47 O2 Del Method Room Air 08/30/25 07:47 Allergies Allergy/AdvReac Type Severity Reaction Status Date / Time No Known Allergies Allergy Verified 08/30/25 07:42 Home Medications ?Medication ?Instructions ?Recorded ?Confirmed ?Type aspirin 81 mg tablet 81 mg PO DAILY 07/14/22 08/19/25 History multivitamin with minerals-folic 1 tablet PO DAILY 07/14/22 08/30/25 History acid 0.4 mg tablet boyoyrv-kkkpctijqfcjx-eoogkkgz 250 1 tablet PO Q4-6H PRN pain #30 tabs 12/01/22 08/19/25 Rx mg-250 mg-65 mg tablet (Excedrin Migraine) hydrocodone 5 mg-acetaminophen 325 1 tablet PO Q6H PRN pain #30 tabs 12/01/22 08/19/25 Rx mg tablet albuterol sulfate 90 mcg/actuation 1 inh inhalation Q4H PRN shortness 12/25/24 08/19/25 Rx aerosol inhaler of breath or wheezing #6.7 grams amlodipine 10 mg tablet 10 mg PO DAILY #90 tabs 02/04/25 08/30/25 Rx atenolol 50 mg tablet 50 mg PO DAILY #90 tabs 02/04/25 08/30/25 Rx atorvastatin 40 mg tablet 40 mg PO DAILY #90 tabs 02/04/25 08/30/25 Rx losartan 100 1 tablet PO DAILY #100 tabs 05/24/25 08/30/25 Rx mg-hydrochlorothiazide 12.5 mg tablet fenofibrate nanocrystallized 145 145 mg PO DAILY 90 days #90 tabs 08/06/25 08/30/25 Rx mg tablet tirzepatide (weight loss) 7.5 7.5 mg (0.5 mL) subcut WEEKLY #2 mL 08/29/25 08/30/25 Rx mg/0.5 mL subcutaneous pen injector (Zepbound) Patient hx anesthesia problems: none Family hx anesthesia problems: none Results Review: All pre-operative results and documents have been reviewed as part of the pre-operative evaluation. [facility] Past Medical History Medical History CKD (chronic kidney disease) stage 2, GFR 60-89 ml/min Obesity (BMI 30.0-34.9) Prediabetes Degenerative disc disease GERD (gastroesophageal reflux disease) Chronic kidney disease, stage 3a Hypertensive chronic kidney disease with stage 1 through stage 4 chronic kidney disease, or unspecified chronic kidney disease Migraine without aura, not intractable, without status migrainosus Hyperlipidemia, unspecified MICHAEL (obstructive sleep apnea) Surgical History Surgical History History of shoulder surgery labrum tear 2007 History of lithotripsy 06/07/2011 H/O colonoscopy Social History Social History (Updated 08/07/25 @ 13:43 by Winifred Mai MA) Smoking packs per day: 1 Smoking cigarettes per day: 20.0 Years smoked: 30 Smoking pack-years: 30.00 Smoking status: Unknown if ever smoked Tobacco type: cigarettes Smoking end date: 09/26/00 Alcohol intake: current Drinks per week: 1 Alcohol use details: occasional Substance use: never Substance use type: does not use Lack of Transportation: No Lack of Food: Never True Current Housing: I Have Housing Concerned About Future Housing: No Difficulty Paying Gas/Electric Bills: No Difficulty Paying for Meds: No Currently Unemployed: No Education: High School Diploma/GED Difficulty w/ Childcare or Family Care: No Living arrangements: with family Occupation/Education: retired Gender identity (if verbalized by the patient): Male Sexual Orientation (if Verbalized by the Patient): Straight or Heterosexual Spiritual care concerns: No Anes - Eval Final PreProcedure Day of Procedure 08/30/25 08:07 Patient weight: obese Heart: regular rate and rhythm Lungs: clear to auscultation Airway: Mallampati scale class II Neurological: alert and oriented Last oral intake: >/= 8 hours ASA classification: III Emergent: no Anesthetic plan: proceed Anesthesia type and monitoring: general LMA and standard monitoring Results Review: All pre-operative results and documents have been reviewed as part of the pre-operative evaluation. Informed Consent: The patient's anesthetic plan and its attendant risks and benefits were discussed with the patient/family/POA. Questions were solicited and answers provided to the satisfaction of the patient/family/POA.
--- NOTE | 2025-08-30 09:25 | WPDHPUPDATE1 ---
History and Physical Update Update Date/Time: 08/30/25 09:25 History and Physical has been reviewed, including an updated exam of the patient. There are NO changes in the patient's condition. Risks, benefits, and alternatives have been discussed and questions answered. Patient agrees to proceed with procedure. Proceed with excision of bilateral axillary subcutaneous masses in the operating room today under general anesthesia. Risks, benefits, indications, and expected outcomes were discussed in detail with the patient and/or family. They understand and I have answered all other questions. They wished to proceed with surgery as outlined above.
[2025-08-30] MEDS: ceFAZolin 2 GM in SODIUM CHLORIDE 0.9% IV 50 ML 100 ML IVPB (09:41)
[2025-08-30] MEDS: LIDO 1%/EPINEPHRINE 1:100,000 20 ML VIAL 30 ML INFILTRATE (10:13)
--- NOTE | 2025-08-30 10:17 | S_PTH ---
PATIENT: Benjamín Muniz LOC: [facility] U#:[id number] AGE/SX: 70/M ROOM: RE08/30/[address]: Zeb Sigala MD : [id number] BED: DIS: 08/30/2025 SPEC #: [id number] RECD: 08/30/25 13:49 STATUS: MASSIEL REQ #: [id number] ORLIN: 08/30/25 10:[address]: Zeb Sigala DEPT: [facility] Surgical RECD BY: Jess Mills ENTERED: 08/30/25 13:50 SP TYPE: Surgical OTHR DR: Suleiman Bernard MD Tissues: A - Mass B - Mass Procedures: Hematoxylin and Eosin Stain Gross and Microscopic Level 3
[2025-08-30] MEDS: fentaNYL CITRATE INJ (*CRX) 100 MCG/2 ML VIAL 25 MCG IV PUSH ×4 (12:07→12:18)
[2025-08-30] MEDS: oxyCODONE HCL (*CRX) 5 MG TAB IR PO (12:52)
--- NOTE | 2025-08-31 17:11 | P.OP_ITS ---
Procedure Note - Detailed Date of Procedure 08/30/25 Pre-op Diagnosis Bilateral axillary subcutaneous masses Post-op Diagnosis Same Procedure Performed Excision of bilateral axillary subcutaneous masses Surgeon Zeb Sigala MD [employer] Anesthesia General Indications Patient is a 70-year-old gentleman who presented with complains of bilateral axillary subcutaneous masses. They seem to be enlarging over a long period of time but were not painful. He presents now for excision of the bilateral subcutaneous masses. Findings The patient have bilateral axillary subcutaneous masses consistent with lipomatous tissue that did not be appear concerning for malignancy. They were both sent separately to pathology for examination. The left axillary mass was removed in 2 pieces the 1st measuring [id number] and the 2nd piece measuring 5x5x1.5cm. The right axillary mass measured [id number]. Description of Procedure After informed consent was obtained patient was brought to the operating room was placed supine position and then general LMA anesthesia was administered. The bilateral axilla were then prepped and draped in usual sterile fashion. A time-out was then performed correctly identifying the patient as well as procedure to be performed. He was given perioperative IV antibiotics. I then proceeded to excise out the subcutaneous mass on the left axilla 1st. A scalp was used to make an oblique incision along the lines of the skin in the left axilla over the subcutaneous mass. Dissection was carried sharply down through the dermis of the skin with a scalpel and then electrocautery was then used to dissect down into the subcutaneous tissues. There was not a real well-defined encapsulated lipomatous mass more of a diffuse enlargement of the subcutaneous tissue in this area. Therefore I dissected and resected the fatty tissue in the area creating subcutaneous flaps making sure there were not too thin. This was carried all the way down to the deltopectoral fascia. On the left side a tissue was resected in 2 pieces recurs measuring [id number] and the 2nd piece measuring 5x5x1.5cm. The tissue was then sent to pathology labeled left axill antoinette subcutaneous mass. I then achieved hemostasis in the incision utilizing electrocautery. It was then irrigated sterile saline solution. I then applied Zuleika powder into the wound to try to decrease seroma formation. The subcutaneous tissues were then closed utilizing multiple layers of interrupted 2-0 Vicryl sutures in the subcutaneous tissues. This was followed by layer interrupted 3-0 Vicryl sutures in the deep dermal layer. The skin edges were then approximated utilizing a running subcuticular 4-0 Monocryl suture. The incision was then cleaned and then skin glue was applied. I then approached excision of the right axillary subcutaneous mass. Again a oblique incision was then made along the lines of the skin in the right axilla. Scalp was then used to make an incision down through the dermis of the skin and then as I entered into the subcutaneous tissues electrocautery was then used to excise out the subcutaneous tissue bleeding adequately created subcutaneous flaps in order not to cause ischemia of the overlying skin. Dissection was carried all the way down to the deltopectoral fascia electrocautery. Some medium-sized titanium clips were then used to ligate small blood vessels. The tissue was passed off table sent to pathology for examination labeled right axillary subcutaneous mass. Again hemostasis was then achieved electrocautery. Irrigation of the incision was then performed and then application of Zuleika powder to the right axillary wound was performed. The incision was then closed in layers utilizing interrupted 2-0 and 3-0 Vicryl sutures in subcutaneous tissues. The skin edges were then approximated utilizing a running subcuticular 4 Monocryl suture. The incision was then cleaned and then skin glue was applied. The patient tolerated the procedure well no complications. All sponges, needles, and instrument counts were correct at the end procedure. EBL was _25__cc. The patient was awakened and taken to recovery in stable and satisfactory condition. Implants None Estimated Blood Loss 25 Drains No Packing No Pathology Yes ( bilateral axillary masses sent to pathology separately) Complications No immediate complications Condition Stable Disposition PACU [facility] Billing Surgery - Charge Forward: Surgery Billing
== END 2025-08-30 13:37 | disposition home or self-care (01) ==
PROVIDERS: PCP Family Medicine; Visit Provider Surgery
PROC: (CPT 24071; principal; 2025-08-30 09:00)
DX: D17.21 Benign lipomatous neoplasm of skin and subcutaneous tissue of right arm (principal); R59.0 Localized enlarged lymph nodes; E13.22 Other specified diabetes mellitus with diabetic chronic kidney disease; I12.9 Hypertensive chronic kidney disease with stage 1 through stage 4 chronic kidney disease, or unspecified chronic kidney disease; N18.31 Chronic kidney disease, stage 3a; K21.9 Gastro-esophageal reflux disease without esophagitis; E78.5 Hyperlipidemia, unspecified; G47.33 Obstructive sleep apnea (adult) (pediatric); Z79.82 Long term (current) use of aspirin; Z79.891 Long term (current) use of opiate analgesic; Z79.51 Long term (current) use of inhaled steroids; Z79.85 Long-term (current) use of injectable non-insulin antidiabetic drugs; Z98.890 Other specified postprocedural states; Z87.891 Personal history of nicotine dependence; E66.9 Obesity, unspecified; Z68.31 Body mass index [BMI] 31.0-31.9, adult
CPT/HCPCS: 24071; 36415; 80048; 85610; 85730; 88304; 93005; J0690; A9270; J1100; J2004; J2405; J2704; J3010; J7120